=== PATIENT | female | born 1980 | race Caucasian/White ===

== ENCOUNTER 2018-01-30 13:51 | Emergency (ER) | payer BC, OTHER ==
[2018-01-30 14:18] LABS: Urine Blood TRACE (NEG); Urine Glucose NEGATIVE (NEG); Urine Protein NEGATIVE (NEG)
[2018-01-30 14:19] LABS: Absolute Lymphocytes (CBC) 2.7 K/uL (0.7-4.9); Absolute Monocytes 0.6 K/uL (0.1-1.3); Absolute Neutrophil 7.4 K/uL (1.8-8.0); Basophils % 0.5 % (0-1.3); Eosinophils % 0.9 % (0-4.4); Hematocrit 42.6 % (36.0-45.0); Lymphocytes % 24.8 % (15.3-44.8); MCV 89.4 fL (80-100); MPV 9.6 fL (7.6-11.3); Monocytes % 5.3 % (3.3-12.3); RBC Red Blood Cell Count 4.77 M/uL (3.86-4.86)
[2018-01-30 14:23] LABS: Protime INR 0.94
--- NOTE | 2018-01-30 14:26 | RAD REPORT ---
EXAM DESCRIPTION: RAD - Chest Single View - 01/30/2018 2:17 pm CLINICAL HISTORY: Code stroke chest film COMPARISON: None. TECHNIQUE: AP portable chest image was obtained 1410 hours . FINDINGS: Lungs are clear. Heart and vasculature are normal. No measurable pleural effusion and no p neumothorax. No acute bone finding. There is scoliotic curvature in the mid and upper thoracic spine. No acute aortic findings suspected. IMPRESSION: No acute cardiopulmonary process.
[2018-01-30 14:29] LABS: Potassium 4.1 mEq/L (3.6-5.0)
--- NOTE | 2018-01-30 14:29 | RAD REPORT ---
EXAM DESCRIPTION: CT - Ct Stroke Brain Wo Cont - 01/30/2018 2:08 pm CLINICAL HISTORY: Code stroke, left-sided facial numbness and tingling, left arm symptoms Images or only initially available in the exception folder. This precludes dictation of a final repor t at that time. Findings were telephoned to the referring clinician. CLINICAL HISTORY: None. TECHNIQUE: Axial 5 millimeter thick images of the head were obtained without IV contrast. All CT scans are performed using dose optimization technique as appropriate and may include automated exposure control or mA/KV adjustment according to patient size. FINDINGS: No intracranial hemorrhage, mass, or cerebral edema. No acute infarction identifiable. No extra-axial fluid collections. Che matter-white matter differentiation is preserved. Visualized portions of the mastoid air cells, paranasal sinuses, and orbits are unremarkable. Findings telephoned to Dr. Tomlinson at 1406 hours. IMPRESSION: No CT evidence of acute intracranial process.
--- NOTE | 2018-01-30 15:29 | EKG ---
Test Date: 2018-01-30 Test Time: 14:17:04 Fluid Dynamicist: NAZ MEASUREMENT RESULTS: Intervals: Rate: 96 RI: 136 QRSD: 78 QT: 344 QTc: 434 [place]: P: 57 RI: 136 QRS: 13 T: 43 INTERPRETIVE STATEMENTS: Normal sinus rhythm Normal ECG No previous ECG available for comparison Electronically Signed On 01-30-18 15:28:47 CDT by William Bobo
[2018-01-30 15:44] LABS: Urine Bacteria NONE SEEN /HPF (<20); Urine Culture Reflex Order NOT NEEDED; Urine RBC <5 /HPF (NONE SEEN)
--- NOTE | 2018-01-30 16:44 | EDPHYS ---
Physician Documentation [facility] Name: Jen Alan Age: 37 yrs Sex: Female : 1980 Arrival Date: 01/30/2018 Time: 13:53 Bed 16 Private MD: ED Physician Joel Tomlinson HPI: 01/30 15:22 This 37 yrs old Female presents to ER via EMS with complaints of Tingling in wa face and left arm. 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 Began on the left lower lip and proceeded to the left side face and temples. radiates down entire L arm. denies weakness, difficulty walking or speaking. denies dizziness or MOLINA. . Onset: The symptoms/episode began/occurred just prior to arrival. Duration: The episode is continuous. Context: symptoms became apparent while fixing lunch. , occurred at work, occurred while the patient was at rest, Possible contributing factors include: unknown. The symptoms are alleviated by nothing. The symptoms are aggravated by nothing. Associated signs and symptoms: Pertinent positives: tingling, Pertinent negatives: agitation, ataxia, blurred vision, chest pain, diaphoresis, dizziness, headache, lightheadedness, nausea, palpitations. Severity of symptoms: At their worst the symptoms were moderate in the emergency department the symptoms have improved. Patient's baseline: Neuro: alert and fully oriented, Motor: no deficits, Ambulation: walks without assistance, Speech: normal, The patient has a previous history of none. The patient has not experienced similar symptoms in the past. The patient has not recently seen a physician. 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 - Social history:: Patient/guardian denies using alcohol, street drugs, tobacco products, Smoking status: Patient/guardian denies using tobacco. - Family history:: not pertinent. - Hospitalizations: : No recent hospitalization is reported. ROS: 15:29 Constitutional: Negative for fever, chills, and weight loss, Eyes: Negative for injury, wa pain, redness, and discharge, ENT: Negative for injury, pain, and discharge, Neck: Negative for injury, pain, and swelling, Cardiovascular: Negative for chest pain, palpitations, and edema, Respiratory: Negative for shortness of breath, cough, wheezing, and pleuritic chest pain, Abdomen/GI: Negative for abdominal pain, nausea, vomiting, diarrhea, and constipation, Back: Negative for injury and pain, : Negative for injury, bleeding, discharge, and swelling, MS/Extremity: Negative for injury and deformity, Skin: Negative for injury, rash, and discoloration, Psych: Negative for depression, anxiety, suicide ideation, homicidal ideation, and hallucinations. 15:29 Neuro: Positive for tingling, of the left side face and LUE, Negative for altered mental status, dizziness, gait disturbance, headache, loss of consciousness, speech changes, syncope, tremor, visual changes, weakness. 15:29 All other systems are negative. Exam: 15:30 [facility] 15:30 Constitutional: This is a well developed, well nourished patient who is awake, alert, and in no acute distress. Head/Face: Normocephalic, atraumatic. Eyes: Pupils equal round and reactive to light, extra-ocular motions intact. Lids and lashes normal. Conjunctiva and sclera are non-icteric and not injected. Cornea within normal limits. Periorbital areas with no swelling, redness, or edema. ENT: Nares patent. No nasal discharge, no septal abnormalities noted. Tympanic membranes are normal and external auditory canals are clear. Oropharynx with no redness, swelling, or masses, exudates, or evidence of obstruction, uvula midline. Mucous membranes moist. Neck: Trachea midline, no thyromegaly or masses palpated, and no cervical lymphadenopathy. Supple, full range of motion without nuchal rigidity, or vertebral point tenderness. No Meningismus. Chest/axilla: Normal chest wall appearance and motion. Nontender with no deformity. No lesions are appreciated. Cardiovascular: Regular rate and rhythm with a normal S1 and S2. No gallops, murmurs, or rubs. Normal PMI, no JVD. No pulse deficits. Respiratory: Lungs have equal breath sounds bilaterally, clear to auscultation and percussion. No rales, rhonchi or wheezes noted. No increased work of breathing, no retractions or nasal flaring. Abdomen/GI: Soft, non-tender, with normal bowel sounds. No distension or tympany. No guarding or rebound. No evidence of tenderness throughout. Back: No spinal tenderness. No costovertebral tenderness. Full range of motion. Skin: Warm, dry with normal turgor. Normal color with no rashes, no lesions, and no evidence of cellulitis. MS/ Extremity: Pulses equal, no cyanosis. Neurovascular intact. Full, normal range of motion. Psych: Awake, alert, with orientation to person, place and time. Behavior, mood, and affect are within normal limits. 15:30 Neuro: Orientation: is normal, Mentation: is normal, Memory: is normal, Cranial nerves: grossly normal, Cerebellar function: is grossly normal, Motor: is normal, Sensation: is normal, Gait: is steady. Vital Signs: 13:47 BP 154 / 88; Pulse 98; Resp 18; Pulse Ox 100% ; sv 14:15 Temp 98.7(O); sv 14:47 BP 127 / 83; Pulse 108; Resp 18; Pulse Ox 99% on R/A; sv 15:49 BP 135 / 90; Pulse 98 MON; Resp 18; Pulse Ox 99% ; sv 15:49 Sinus Rhythm sv NIH Stroke Scale Scores: 14:28 NIHSS Score: 0 sv MDM: 13:57 Patient medically screened. wa 15:31 Differential diagnosis: CVA, TIA, metabolic disorder, consider MS. Data reviewed: vital wa signs, nurses notes, lab test result(s), EKG, radiologic studies. Test interpretation: by ED physician or midlevel provider: ECG, EKG: HR 96. nml axis. nml EKG. labs noted wnl. Nml CXR. 15:32 ED course: nml strength. no lateralizing deficits. will have f/u with neurology. return wa for any worsening concerns. 16:39 Special discussion: negative work up in ED. symptoms completely resolved. will d/c with wa close f/u with neurology. understands to return for any worsening concerns immediately. 01/30 14:10 Order name: Glucose, Ancillary Testing; Complete Time: 14:39 EDMS 01/30 14:13 Order name: Basic Metabolic Panel; Complete Time: 14:39 hb 01/30 14:51 Interpretation: GFR 56. wa 01/30 14:13 Order name: CBC with Diff; Complete Time: 14:50 hb 01/30 14:13 Order name: Protime (+inr); Complete Time: 14:50 hb 01/30 14:13 Order name: Ptt, Activated; Complete Time: 14:50 hb 01/30 14:13 Order name: Urine Microscopic Only hb 01/30 14:02 Order name: CT Stroke Brain w/o Contrast; Complete Time: 14:39 mw2 01/30 14:12 Order name: Chest Single View XRAY - STROKE; Complete Time: 14:50 hb 01/30 14:13 Order name: EKG; Complete Time: 14:14 hb 01/30 14:13 Order name: Accucheck; Complete Time: 14:17 hb 01/30 14:13 Order name: Cardiac monitoring; Complete Time: 14:17 hb 01/30 14:15 Order name: Urine Dipstick--Ancillary (enter results); Complete Time: 14:39 mw2 01/30 14:15 Order name: Urine --Ancillary (enter results); Complete Time: 14:39 mw2 01/30 14:13 Order name: EKG - Nurse/Tech; Complete Time: 14:17 hb 01/30 14:13 Order name: IV Saline Lock; Complete Time: 14:17 hb 01/30 14:13 Order name: Labs collected and sent; Complete Time: 14:17 hb 01/30 14:13 Order name: NPO; Complete Time: 14:17 hb 01/30 14:13 Order name: O2 Per Protocol; Complete Time: 14:17 hb 01/30 14:13 Order name: O2 Sat Monitoring; Complete Time: 14:17 hb 01/30 14:13 Order name: Stroke Swallow Screen; Complete Time: 16:45 hb 01/30 14:13 Order name: Urine Dipstick-Ancillary (obtain specimen); Complete Time: 14:17 hb Administered Medications: 17:08 Drug: Aspirin Chewable Tablet 324 mg Route: PO; sv 17:08 Follow up: Response: Medication administered at discharge. sv Point of Care Testing: Blood Glucose: 14:07 Blood Glucose: 93 mg/dL; sv Ranges: Critical Glucose Levels:Adult <50 mg/dl or >400 mg/dl <40 mg/dl or >180 mg/dl Disposition: 01/30/18 16:43 Discharged to Home. Impression: Left Facial Tingling, Left Upper Extremity Tingling. - Condition is Stable. - Medication Reconciliation Form, Thank You Letter, Antibiotic Education, Prescription Opioid Use form. - Work release form (01/31/18 09:50). ag - Follow up: Arnaldo Guevara MD; When: 1 - 2 days; Reason: Re-evaluation by your physician. - Problem is new. - Symptoms are resolved. - Notes: all your tests today have turned up within normal limits. the reason for your symptoms today is not entirely clear. please follow up with the neurologist as discussed within 2-3 days. return emergently to an ER setting for any rapidly worsening concerns such as headache, difficulty speaking and or walking NIH Stroke Scale - NIH Stroke Score Date: 01/30/2018 Time: 14:28 Total Score = 0 1a. Level of Consciousness (LOC) - 0(Alert) 1b. Level of Consciousness (LOC) (Year \T\ Age) - 0(Both) 1c. 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 Best Gaze (Lateral Gaze Paresis) - 0(Normal) 3. Visual Field Loss - 0(No visual loss) 4. Facial Palsy - 0(Normal) 5a. Left Arm: Motor (10-second hold) - 0(No drift) 5b. Right Arm: Motor (10-second hold) - 0(No drift) 6a. Left Leg: Motor (5-second hold - always test supine) - 0(No drift) 6b. Right Leg: Motor (5-second hold - always test supine) - 0(No drift) 7. Limb Ataxia (finger/nose \T\ heel/hays - test with eyes open) - 0(Absent) 8. Sensory Loss (pinprick arms/legs/face) - 0(Normal) 9. Best Language: Aphasia (description/naming/reading) - 0(No aphasia) 10. Dysarthria (speech clarity - read or repeat words) - 0(Normal) 11. Extinction and Inattention (visual/tactile/auditory/spatial/personal) - 0(No abnormality) Initials: sv Signatures: Dispatcher [employer] EDRegine Amato MARIELENA RN Alda Coburn RN RN hb Joel Tomlinson MD MD wa Gallardo, Ana ag
--- NOTE | 2018-01-30 16:44 | ER ---
Nurse's Notes [facility] Name: Jen Alan Age: 37 yrs Sex: Female : 1980 Arrival Date: 01/30/2018 Time: 13:53 Bed 16 Private MD: Diagnosis: Left Facial Tingling;Left Upper Extremity Tingling Presentation: 01/30 13:47 Presenting complaint: EMS states: tingling to lips, face, neck and left arm that sv started about 1.5 hours ago while at work while eating. BS-152, BP 150/74 HR 10 98% RA, EKG-ST. Transition of care: patient was not received from another setting of care. Onset of symptoms was January 30, 2018 at 12:00. Care prior to arrival: None. 13:47 Method Of Arrival: EMS: [facility] sv 13:47 Acuity: SAM 2 sv 14:07 The patients blood glucose was checked before arriving to the hospital and was found to sv be normal. Triage Assessment: 13:47 The onset of the patients symptoms was less than three hours ago. General: Appears in sv no apparent distress. comfortable, well developed, Behavior is calm, cooperative, appropriate for age. Pain: Denies pain. EENT: No signs and/or symptoms were reported regarding the EENT system. Neuro: Level of Consciousness is awake, alert, obeys commands, Oriented to person, place, time, situation, Moves all extremities. Full function Speech is normal, Facial symmetry appears normal, Tingling in left restoration, left zygomatic area, left cheek, left arm and mouth Denies blurred vision dizziness, difficulty swallowing, headache. Cardiovascular: Patient's skin is warm and dry. Respiratory: Respiratory effort is even, unlabored, Respiratory pattern is regular, symmetrical. GI: No signs and/or symptoms were reported involving the gastrointestinal system. : No signs and/or symptoms were reported regarding the genitourinary system. Derm: Skin is pink, warm \T\ dry. Musculoskeletal: Range of motion: intact in all extremities. 13:47 The onset of the patients symptoms was January 30, 2018 at 12:00. 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 Tomlinson; Notified At: ; Arrived At: Physician: Chief Stroke Resident; Name: ; Notified At: ; Arrived At: Physician: Stroke Resident; Name: ; Notified At: ; Arrived At: Physician: ED Attending; Name: ; Notified At: ; Arrived At: Physician: ED Resident; Name: ; Notified At: ; Arrived At: Historical: - Allergies: 14:12 No Known Allergies; sv - Home Meds: 14:12 IUD [Active]; sv - PMHx: 14:12 None; sv - PSHx: 14:12 None; sv - Immunization history:: Adult Immunizations up to date. - Social history:: Patient/guardian denies using alcohol, street drugs, tobacco products, Smoking status: Patient/guardian denies using tobacco. - Family history:: not pertinent. - Hospitalizations: : No recent hospitalization is reported. Screenin:10 Abuse screen: Denies threats or abuse. Denies injuries from another. Nutritional sv screening: No deficits noted. Tuberculosis screening: No symptoms or risk factors identified. Fall Risk None identified. Assessment: 13:50 Reassessment: Code Stroke called, pt transported to CT via stretcher with MARIELENA Weiner.hb 14:15 Patient has been NPO before screening. The patient is alert, and able to follow sv commands. The patient does not exhibit slurred or garbled speech. The patient is not exhibiting difficulty speaking. The patient does not exhibit difficulty understanding words. The patient is able to swallow own secretions with no drooling or need for suction. Patient tolerated one teaspoon of water. No drooling, immediate coughing, gurgling, or clearing of the throat was noted. The patient tolerated 90mL of water. No drooling, immediate coughing, gurgling, or clearing of the throat was noted. The patient passed the bedside swallow screening. Oral medications may be given as ordered. Contact Physician for further diet orders. Provider notified of bedside swallow screening results: Joel Tomlinson MD. 14:28 T-PA (Activase) Screening:. sv 15:30 Reassessment: Patient appears in no apparent distress at this time. No changes from sv previously documented assessment. Patient and/or family updated on plan of care and expected duration. Pain level reassessed. Patient is alert, oriented x 3, equal unlabored respirations, skin warm/dry/pink. 17:00 Reassessment: Patient appears in no apparent distress at this time. No changes from sv previously documented assessment. Patient and/or family updated on plan of care and expected duration. Pain level reassessed. Patient is alert, oriented x 3, equal unlabored respirations, skin warm/dry/pink. Vital Signs: 13:47 BP 154 / 88; Pulse 98; Resp 18; Pulse Ox 100% ; sv 14:15 Temp 98.7(O); sv 14:47 BP 127 / 83; Pulse 108; Resp 18; Pulse Ox 99% on R/A; sv 15:49 BP 135 / 90; Pulse 98 MON; Resp 18; Pulse Ox 99% ; sv 15:49 Sinus Rhythm sv NIH Stroke Scale Scores: 14:28 NIHSS Score: 0 sv ED Course: 13:53 Patient arrived in ED. hb 13:53 Regine Zuleta, RN is Primary Nurse. sv 13:[address] via stretcher. sv 13:57 Joel Tomlinson MD is Attending Physician. wa 13:58 CT completed. Patient tolerated procedure well. Patient moved to CT via stretcher. sj Patient moved back from CT. 14:00 Initial lab(s) drawn, by me, sent to lab. Inserted saline lock: 20 gauge in left sv antecubital area, using aseptic technique. Blood collected. Flushed left antecubital with 5 ml normal saline. 14:00 Patient has correct armband on for positive identification. Placed in gown. Bed in low sv position. Call light in reach. Side rails up X2. child monitor on. Pulse ox on. NIBP on. Door closed. Head of bed elevated. 14:00 Arm band placed on right wrist. sv 14:07 CT Stroke Brain w/o Contrast In Process Unspecified. EDMS 14:09 X-ray(s) taken. sv 14:15 Triage completed. sv 14:17 Chest Single View XRAY - STROKE In Process Unspecified. EDMS 14:20 ED physician to see patient. sv 14:20 EKG done, by ct technologist. reviewed by Joel Tomlinson MD. at1 15:49 Awaiting re-evaluation by ER provider. sv 16:41 Arnaldo Guevara MD is Referral Physician. wa 17:00 No provider procedures requiring assistance completed. IV discontinued, intact, sv bleeding controlled, No redness/swelling at site. Pressure dressing applied. Administered Medications: 17:08 Drug: Aspirin Chewable Tablet 324 mg Route: PO; sv 17:08 Follow up: Response: Medication administered at discharge. Point of Care Testing: Blood Glucose: 14:07 Blood Glucose: 93 mg/dL; Ranges: Outcome: 16:43 Discharge ordered by . raad 17:00 Discharged to home ambulatory. 17:00 Condition: stable 17:00 Discharge instructions given to patient, Instructed on discharge instructions, follow up and referral plans. Demonstrated understanding of instructions, follow-up care. 17:08 Patient left the ED. NIH Stroke Scale - NIH Stroke Score Date: 01/30/2018 Time: 14:28 Total Score = 0 1a. Level of Consciousness (LOC) - 0(Alert) 1b. Level of Consciousness (LOC) (Year \T\ Age) - 0(Both) 1c. 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 Best Gaze (Lateral Gaze Paresis) - 0(Normal) 3. Visual Field Loss - 0(No visual loss) 4. Facial Palsy - 0(Normal) 5a. Left Arm: Motor (10-second hold) - 0(No drift) 5b. Right Arm: Motor (10-second hold) - 0(No drift) 6a. Left Leg: Motor (5-second hold - always test supine) - 0(No drift) 6b. Right Leg: Motor (5-second hold - always test supine) - 0(No drift) 7. Limb Ataxia (finger/nose \T\ heel/hays - test with eyes open) - 0(Absent) 8. Sensory Loss (pinprick arms/legs/face) - 0(Normal) 9. Best Language: Aphasia (description/naming/reading) - 0(No aphasia) 10. Dysarthria (speech clarity - read or repeat words) - 0(Normal) 11. Extinction and Inattention (visual/tactile/auditory/spatial/personal) - 0(No abnormality) Initials: Signatures: Dispatcher [employer] Regine Boyer RN RN sv Jones, Susan sj gonzales, Amanda, retail advertising account executive EKG Tat1 Alda Hawkins RN RN Davi, MD MD raad Maldonado
[2018-01-30] MEDS ORDERED: ASPIRIN 81 MG CHEWABLE TABLET ONE (16:53)
== END 2018-01-30 17:08 | disposition home or self-care (01) ==
LOC: ER 13:51
DX: R20.2 Paresthesia of skin (principal)
CPT/HCPCS: 36415; 70450; 71045; 80048; 81003; 81015; 81025; 82962; 85025; 85610; 85730; 93005; 99285

== ENCOUNTER 2024-11-30 09:19 | Emergency (ER) | payer BC ==
--- OUTSIDE RECORDS SUMMARY | 2024-11-30 09:22 | XMS REPORT | Continuity of Care Document ---
Author Name Unknown Address [address] [facility] [address] [place] [address] [facility] Address [address] [facility] [place] [address] Care Team Providers Care Intensive Care Medicine Specialist Name Role Phone PCP, PATIENT DOES NOT HAVE A Primary Care Physic PRIMO Fay Attending Clinician Unavailable Primo Adrian Attending Clinician [phone] Unknown, Attending Attending Clinician Unavailab le Doctor Unassigned, [place] Attending Clinician U Mathew Mckinnon Attending Clinician [phone] Frances Sainz PA-C Attending Clinician [phone] Payers Payer Name Policy Type Policy Number Effective Date Expirati on Date Source [facility] [id number] 2016 00:00:00 Problems Condition Name Condition Details Condition Category Status Onset Date Resolution Date Last Treatment Date Treating Clinician Comments Source No known active problems No known active problems Disease [facility] Allergies, Adverse Reactions, Alerts Allergy Name Allergy Type Status Severity Reaction(s) Onset Date Inactive Date Treating Clinician Comments Source No Known Drug Allergie s DA Active U 05-05 00:00: [facility] NO KNOWN ALLERGIE S Drug Class Active [facility] Social History Social Habit Start Date Stop Date Quantity Comments Source History of tobacco use Occasional tobacco smoker [facility] Exposure to SARS-CoV-2 (event) 2023-02-14 00:00:00 2023-02-24 16:01:00 Not sure [facility] Tobacco use and exposure 2023-02-24 00:00:00 2023-02-24 00:00:00 Smokeless tobacco non-user [facility] Sex Assigned At 1980 00:00:00 1980 00:00:00 [facility] Smoking Status Start Date Stop Date Source Occasional tobacco smoker 2023-02-24 00:00:00 [facility] Medications Ordered Medication Name Filled Medication Name Start Date Stop Date Current Medication? Ordering Clinician Indication Dosage Frequency Signature (SIG) Comments Components Source cetirizine 10 mg tablet 02-24 16:14: 40 Yes 10mg Take 1 tablet by mouth in the morning. [facility] topiramate (TOPAMAX ORAL) 02-24 16:14: 40 Yes Take by mouth. [facility] aspirin 81 mg chewable tablet 02-24 16:14: 40 Yes 81mg Take 1 tablet by mouth in the morning. [facility] predniSONE 20 mg tablet 02-24 00:00: 00 03-02 04:59 :00 No [id number] 20mg Take 1 tablet by mouth in the morning and 1 tablet in the evening. Do all this for 5 days. [facility] cetirizine (ZYRTEC) 10 mg tablet 11-29 23:04: 12 Yes 10mg Take 10 mg by mouth daily. [facility] cetirizine (ZYRTEC) 10 mg tablet 11-29 17:04: 12 Yes 10mg Take 10 mg by mouth daily. [facility] methylPREDN ISolone (MEDROL, LTAHA,) 4 mg tablets 11-29 00:00: 00 02-24 00:00 :00 No [id number] Take by mouth SEE-INSTRU CTIONS. follow package directions [facility] bromphenira mine-pseudo ephedrine-D M (BROMFED DM) 2-30-10 mg/5 mL syrup 11-29 00:00: 00 12-10 05:59 :00 No [id number] 5mL Take 5 mL by mouth 4 (four) times daily as needed for Cough for up to 10 days. [facility] topiramate 50 mg tablet 11-10 00:00: 00 Yes TK 1 T PO HS [facility] clindamycin 300 mg capsule 2018-10 00:00: 00 Yes TK ONE C PO QID FOR 7 DAYS [facility] cetirizine (ZYRTEC) 10 mg tablet 06-20 18:35: 39 Yes 10mg Take 10 mg by mouth daily. [facility] topiramate (TOPAMAX ORAL) 06-20 18:35: 39 Yes Take by mouth. [facility] aspirin 81 mg chewable tablet 06-20 18:35: 39 Yes 81mg Take 81 mg by mouth daily. [facility] montelukast (SINGULAIR) 10 mg tablet 06-20 18:34: 28 Yes 10mg Take 10 mg by mouth. [facility] topiramate (TOPAMAX ORAL) 06-20 13:35: 39 Yes Take by mouth. [facility] aspirin 81 mg chewable tablet 06-20 13:35: 39 Yes 81mg Take 81 mg by mouth daily. [facility] montelukast (SINGULAIR) 10 mg tablet 06-20 13:34: 28 Yes 10mg Take 10 mg by mouth. [facility] montelukast (SINGULAIR) 10 mg tablet 01-18 02:05: 38 Yes 10mg Take 10 mg by mouth. [facility] mupirocin (BACTROBAN) 2 % ointment 01-17 00:00: 00 Yes [id number] Apply to area(s) 3 (three) times daily. [facility] Vital Signs Vital Name Observation Time Observation Value Comments S odilia Systolic blood pressure 2023-02-24 21:15:00 144 mm[Hg] [facility] Diastolic blood pressure 2023-02-24 21:15:00 88 mm[Hg] [facility] Heart rate 2023-02-24 21:10:00 90 /min [facility] Body temperature 2023-02-24 21:10:00 36.22 [place] [facility] Respiratory rate 2023-02-24 21:10:00 18 /min [facility] Body height 2023-02-24 21:10:[address] [facility] Body weight 2023-02-24 21:10:[address] [facility] BMI 2023-02-24 21:10:00 30.79 kg/m2 [facility] Oxygen saturation in Arterial blood by Pulse oximetry 2023-02-24 21:10:00 100 /min [facility] Systolic blood pressure 2019-11-29 23:02:00 137 mm[Hg] [facility] Diastolic blood pressure 2019-11-29 23:02:00 94 mm[Hg] [facility] Heart rate 2019-11-29 23:02:00 91 /min [facility] Body temperature 2019-11-29 23:02:00 36.89 [facility] Respiratory rate 2019-11-29 23:02:00 18 /min [facility] Body height 2019-11-29 23:02:[address] [facility] Body weight 2019-11-29 23:02:[address] [facility] BMI 2019-11-29 23:02:00 37.89 kg/m2 [facility] Oxygen saturation in Arterial blood by Pulse oximetry 2019-11-29 23:02:00 98 /min [facility] Systolic blood pressure 2019-06-20 18:35:00 124 mm[Hg] [facility] Diastolic blood pressure 2019-06-20 18:35:00 86 mm[Hg] [facility] Heart rate 2019-06-20 18:35:00 89 /min [facility] Body temperature 2019-06-20 18:35:00 36.83 [place] [facility] Respiratory rate 2019-06-20 18:35:00 18 /min [facility] Body height 2019-06-20 18:35:[address] [facility] Body weight 2019-06-20 18:35:[address] [facility] BMI 2019-06-20 18:35:00 37.84 kg/m2 [facility] Oxygen saturation in Arterial blood by Pulse oximetry 2019-06-20 18:35:00 99 /min [place] Procedures Procedure Date / Time Performed Performing Clinician Source ASSIGNMENT OF BENEFITS 2023-02-24 21:01:17 Docto r Unassigned, [place] [facility] POCT GRP A STREP (MOLECULAR) 2019-11-29 23:12:00 Otoniel Saeid [facility] POCT FLU A AND B (MOLECULAR) 2019-11-29 23:12:00 Otoniel Saeid [facility] POCT RAPID STREP SCREEN FOR GROUP A 2019-06-20 18:41:00 Frances Sainz [facility] NO SHOW OR MISSED APPOINTMENT POLICY ACKNOWLEDGEMENT 2019-06-20 18:29:08 Doctor Unassigned, [place] [facility] Encounters Start Date/Time End Date/Time Encounter Type Admission Type Attending Clinicians Care Facility Care Department Encounter ID Source 2023-02-24 16:00:00 2023-02-24 16:37:00 Outpatient R PRIMO CALDERÓN [facility] [id number] [facility] 2023-02-24 16:00:00 2023-02-24 16:37:00 Urgent Care Primo Calderón Unknown, Attending [facility] ..[id number] [id number] [facility] 2023-02-24 00:00:00 2023-02-24 00:00:00 Orders Only Doctor Unassigned, [place] [facility] [id number] [id number] [facility] 2020-04-18 10:40:00 2020-04-18 10:40:00 Outpatient R [facility] [id number] [facility] 2019-12-10 18:43:00 2019-12-10 18:43:00 Emergency E [facility] [id number] [facility] 2019-11-29 16:56:22 2019-11-29 17:28:41 Urgent Care Mathew Chairez Unknown, Attending [facility] [id number] [facility] 2019-06-20 13:28:22 2019-06-20 13:43:22 Urgent Care Frances Sainz Unknown, Attending [facility] [id number] [facility] 2019-06-20 00:00:00 2019-06-20 00:00:00 Orders Only Doctor Unassigned, [place] [facility] [id number] [id number] [id number] [facility] Results Test Description Test Time Test Comments Results Result Co mments Source [facility] GRP A STREP (MOLECULAR)2019-11-29 23:24:00* Test Item Value Reference Range Interpretation Comme nts POCT GP A STREP (test code = 44191-8) negative Negative - Negative PAULA (test code = PAULA) accurate developme nt and interpretation of all internal controls Lab Interpretation (test code = 56307-4) Normal [facility] RAPID STREP SCREEN FOR GROUP [id number] 18:48:00* Test Item Value Reference Range Interpretation Comme nts POCT GP A STREP (test code = 97743-9) neg Negative - Negative PAULA (test code = PAULA) accurate developme nt and interpretation of all internal controls Lab Interpretation (test code = 55636-2) Normal [facility] [id number] 16:26:00* Test Item Value Reference Range Interpretation Comme nts SODIUM (test code = NA) 138 mEq/L 134-147 N POTASSIUM (test code = K) 3.6 mEq/L 3.4-5.0 N CHLORIDE (test code = CL) 107 mEq/L 100-108 N CARBON DIOXIDE (test code = CO2) 24 mEq/L 21-33 N ANION GAP (test code = GAP) 11 0-20 N GLUCOSE (test code = GLU) 110 mg/dL 70-110 N BLOOD UREA NITROGEN (test code = BUN) 13 mg/dL 7-18 N GLOMERULAR FILTRATION RATE (test code = GFR) 69.7 105-110 L Units of measure = ml/min/1.73 m2 CREATININE (test code = CREAT) 0.9 mg/dL 0.6-1.3 N TOTAL PROTEIN (test code = PROT) 8.2 g/dL 6.4-8.2 N ALBUMIN (test code = ALB) 4.20 g/dL 3.4-5.0 N CALCIUM (test code = CA) 9.1 mg/dL 8.0-10.5 N BILIRUBIN TOTAL (test code = BILT) 0.40 mg/dL 0.0-1.0 N SGOT/AST (test code = AST) 17 IUnit/L 15-37 N SGPT/ALT (test code = ALT) 31 IUnit/L 15-65 N ALKALINE PHOSPHATASE TOTAL (test code = ALKP) 67 IUnit/L 20-125 N [id number] 16:23:00* Test Item Value Reference Range Interpretation Comme nts D-DIMER (test code = DDIMER) 236 ng/mlFEU <=500 N THROMBOSIS AND/O R PULMONARY EMBOLISM AND THE CLINICAL CUT- OFF VALUE FOR EXCLUSION (500 ng/mL FEU) OF THESE CONDITIONSIS VALIDATED BY THE ELECTRONIC RESOURCES LIBRARIAN OF THE METHOD. A NEGATIVE D-DIMER RESULT WHEN COMBINED WITH A CLINICALASSESSMENT OF LOW PRETEST PROBABILITY HAS BEEN SHOWN TO HAVEA HIGH NEGATIVE PREDICTIVE VALUE OF DVT OR PE. D-DIMER VALUES >500 ng/mL FEU ARE NOT DIAGNOSTIC FOR DVT, PEor DIC WITHOUT OTHER CONFIRMATORY TESTS AND APPROPRIATECLINICAL EUALUATIONS. COMPREHENSIVE METABOLIC [id number] 16:23:00* Test Item Value Reference Range Interpretation Comme nts SODIUM (test code = NA) 138 mEq/L 134-147 N POTASSIUM (test code = K) 3.6 mEq/L 3.4-5.0 N CHLORIDE (test code = CL) 107 mEq/L 100-108 N CARBON DIOXIDE (test code = CO2) 24 mEq/L 21-33 N ANION GAP (test code = GAP) 11 0-20 N GLUCOSE (test code = GLU) 110 mg/dL 70-110 N BLOOD UREA NITROGEN (test code = BUN) 13 mg/dL 7-18 N GLOMERULAR FILTRATION RATE (test code = GFR) 69.7 105-110 L Units of measure = ml/min/1.73 m2 CREATININE (test code = CREAT) 0.9 mg/dL 0.6-1.3 N TOTAL PROTEIN (test code = PROT) g/dL 6.4-8.2 ALBUMIN (test code = ALB) 4.20 g/dL 3.4-5.0 N CALCIUM (test code = CA) 9.1 mg/dL 8.0-10.5 N BILIRUBIN TOTAL (test code = BILT) mg/dL 0.0-1.0 SGOT/AST (test code = AST) 17 IUnit/L 15-37 N SGPT/ALT (test code = ALT) 31 IUnit/L 15-65 N ALKALINE PHOSPHATASE TOTAL (test code = ALKP) IUnit/L 20-125 CBC W/AUTO [id number] 16:16:00* Test Item Value Reference Range Interpretation Comme nts WHITE BLOOD CELL (test code = WBC) 11.54 x10 3/uL 4.5-11.0 H RED BLOOD CELL (test code = RBC) 5.09 x10 6/uL 3.54-5.02 H HEMOGLOBIN (test code = HGB) 15.5 g/dL 11.0-15.0 H HEMATOCRIT (test code = HCT) 45.0 % 33.0-45.0 N MEAN CELL VOLUME (test code = MCV) 88.4 fL 81.0-99.0 N MEAN CELL HGB (test code = MCH) 30.5 pg 27.0-33.0 N MEAN CELL HGB CONCETRATION (test code = MCHC) 34.4 g/dL 33.0-37.0 N RED CELL DISTRIBUTION WIDTH CV (test code = RDW) 11.5 % 11.5-14.5 N RED CELL DISTRIBUTION WIDTH SD (test code = RDW-SD) 37.2 fL 37.0-54.0 N PLATELET COUNT (test code = PLT) 278 x10 3/uL 150-400 N MEAN PLATELET VOLUME (test code = MPV) 11.1 fL 7.0-9.0 H NEUTROPHIL % (test code = NT%) 69.8 % 56.0-77.0 N IMMATURE GRANULOCYTE % (test code = IG%) 0.7 % 0.0-2.0 N LYMPHOCYTE % (test code = LY%) 23.0 % 14.0-32.0 N MONOCYTE % (test code = MO%) 5.1 % 4.8-9.0 N EOSINOPHIL % (test code = EO%) 1.0 % 0.3-3.7 N BASOPHIL % (test code = BA%) 0.4 % 0.0-2.0 N NUCLEATED RBC % (test code = NRBC%) 0.0 % 0-0 N NEUTROPHIL # (test code = NT#) 8.06 x10 3/uL 2.0-7.6 H IMMATURE GRANULOCYTE # (test code = IG#) 0.08 x10 3/uL 0.00-0.03 H LYMPHOCYTE # (test code = LY#) 2.65 x10 3/uL 1.0-3.8 N MONOCYTE # (test code = MO#) 0.59 x10 3/uL 0.1-0.8 N EOSINOPHIL # (test code = EO#) 0.11 x10 3/uL 0.0-0.2 N BASOPHIL # (test code = BA#) 0.05 x10 3/uL 0.0-0.2 N NUCLEATED RBC # (test code = NRBC#) 0.00 x10 3/uL 0.0-0.1 N MANUAL DIFF REQUIRED (test code = MDIFF) NO - XR CHEST 2 [id number] 15:03:00FAX: Ayesha Vargas DO [place]: St: PRE Name: [facility] Arpita Diego : 1980 Age/S: 38/F [address] [place] [address] Unit #: [id number] Loc: [place] [address] Phys: Ayesha Jay DO Acct: [id number] Dis Date: Status: PRE ER PHONE #: [phone] Exam Date: 01/04/2019 1503 FAX #: [phone] Reason: CHEST PAIN, TACHYCARDIA EXAMS: CPT CODE: [id number] XR CHEST 2 V 20027 EXAM: PA and lateral chest. EXAM DATE: January 04, 2019 CLINICAL HISTORY: Chest pain, tachycardia COMPARISON: None Cardiomediastinal silhouette is within normal limits. The lungs appear free of acute disease. S-shaped scoliosis is identified in the thoracic spine. IMPRESSION: No evidence of acute cardiopulmonary disease. at 1508 Reported and signed by: Ashly Lentz M.D. CC: Ayesha Jay DO Technologist: RT Gabino(Irena) Ana Paula Date/Time/By: 01/04/2019 (2990) : By: Shakira Orig Print D/T: S: 01/04/2019 (4886) PAGE 1 Signed Report
[2024-11-30] MEDS ORDERED: ONDANSETRON 4 MG/2 ML VIAL ONE (10:03)
[2024-11-30] MEDS ORDERED: NA CHLORIDE 0.9% 1,000 ML ONE (10:04)
[2024-11-30] MEDS ORDERED: MORPHINE 4 MG/ML SYR ONE (10:04)
[2024-11-30 10:11] LABS: Specific Gravity 1.021 (1.005-1.030); Sqamous Epithelial <5 /HPF (None Seen); Urine Bacteria <20 /HPF (<20); Urine Bilirubin NEGATIVE (Negative); Urine Blood 2+ (Negative); Urine Clarity Turbid (Clear); Urine Color Light-Yellow (Yellow); Urine Culture Reflex Order NOT NEEDED; Urine Glucose NEGATIVE (Negative); Urine Ketones NEGATIVE (Negative); Urine Microscopic Reflex YN ORDER UMIC; Urine Mucus Slight /HPF (None Seen); Urine Nitrite NEGATIVE (Negative); Urine Protein NEGATIVE (Negative); Urine RBC <5 /HPF (None Seen); Urine Urobilinogen Normal (Normal); Urine WBC <5 /HPF (<5)
[2024-11-30 10:14] LABS: Absolute Basophils 0.1 K/uL (0-0.5); Absolute Eosinophils 0.1 K/uL (0-0.5); Absolute Lymphocytes (CBC) 2.7 K/uL (0.7-4.9); Absolute Monocytes 0.6 K/uL (0.1-1.3); Absolute Neutrophil 7.5 K/uL (1.8-8.0); Basophils % 0.8 % (0-1.3); Eosinophils % 1.1 % (0-4.4); Hematocrit 41.6 % (36.0-45.0); Hemoglobin 14.2 g/dL (12.0-15.0); MCH 30.6 pg (27.0-35.0); MCHC 34.2 g/dL (32.0-36.0); MCV 89.3 fL (80-100); MPV 8.9 fL (7.6-11.3); Monocytes % 5.3 % (3.3-12.3); Neutrophils % 67.8 % (41.7-73.7); Platelets 264 thou/uL (152-406); RBC Red Blood Cell Count 4.65 M/uL (3.86-4.86); Red Cell Distribution Width 12.3 % (12.1-15.2)
[2024-11-30 10:28] LABS: Albumin 3.9 g/dL (3.4-5.0); Albumin/Globulin Ratio 1.1 (1.1-1.8); Anion Gap 8.9 mEq/L (5.0-15.0); Bilirubin Total 0.3 mg/dL (0.2-1.0); Globulin 3.6 g/dL (2.3-3.5); Potassium 3.9 mEq/L (3.5-5.1); Protein, Total 7.5 g/dL (6.4-8.2)
--- NOTE | 2024-11-30 11:17 | RAD REPORT ---
EXAMINATION: CT ABDOMEN AND PELVIS WITH CONTRAST CLINICAL INDICATION: ABD PAIN TECHNIQUE: CT abdomen and pelvis was performed, after the administration of IV contrast, as per [facility] protocol. Axial, sagittal and coronal reconstructions were obtained. One or more of the following dose reduction techniques were used: Automated exposure control, adjustment of the mA and k V according to patient size, and iterative reconstruction. Unless otherwise specified, incidental findings do not require dedicated imaging follow-up. COMPARISON: No prior exam. FINDINGS: LOWER CHEST: The visualized lung bases are clear. Small hiatal hernia. LIVER: Normal in size and contour. No focal lesion. Grossly unremarkable gallbladder. SPLEEN: Normal size. No focal lesion. PANCREAS: No mass, ductal dilation, or anahy-pancreatic fluid. ADRENALS: Normal; no mass. KIDNEYS: Normal size and contour. No hydronephrosis. GASTROINTESTINAL TRACT: No evidence of free air, significant intra-abdominal free fluid, bowel obstru ction or abscess. Prominent sigmoid diverticulosis coli without diverticulitis. APPENDIX: Normal appendix. LYMPH NODES: No lymphadenopathy. MUSCULOSKELETAL: Mild degenerative levoscoliosis lumbar spine. ADDITIONAL FINDINGS: Small fat-containing umbilical hernia. IMPRESSION: Prominent sigmoid diverticulosis coli is present without diverticulitis findings. Small fat-containing umbilical hernia. Mild lumbar levoscoliosis.
--- NOTE | 2024-11-30 11:23 | ER ---
Nurse's Notes [facility] Name: Jen Alan Age: 44 yrs Sex: Female : 1980 Arrival Date: 11/30/2024 Time: 09:19 Bed 2 Private MD: Diagnosis: Lower abdominal pain, unspecified;Constipation, unspecified Presentation: 11/30 09:30 Chief complaint: Patient states: RLQ pain since 1 am. Coronavirus screen: At this time, iw the client does not indicate any symptoms associated with coronavirus-19. Ebola Screen: No symptoms or risks identified at this time. Initial Sepsis Screen: Does the patient meet any 2 criteria? No. Patient's initial sepsis screen is negative. Does the patient have a suspected source of infection? No. Patient's initial sepsis screen is negative. Risk Assessment: Do you want to hurt yourself or someone else? Patient reports no desire to harm self or others. Onset of symptoms was November 30, 2024. 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 - Infectious Disease History:: Denies. - Social history:: Smoking status: Reported history of juuling and/or vaping. Patient/guardian denies using tobacco, the patient reports quitting approximately 1 years ago. Screenin:55 [facility] ED Fall Risk Assessment (Adult) History of falling in the last 3 months, aa5 including since admission No falls in past 3 months (0 pts) Confusion or Disorientation No (0 pts) Intoxicated or Sedated No (0 pts) Impaired Gait No (0 pts) Mobility Assist Device Used No (0 pt) Altered Elimination No (0 pt) Score/Fall Risk Level 0 - 2 = Low Risk Oriented to surroundings, Maintained a safe environment, Educated pt \T\ family on fall prevention, incl call for assistance when getting out of bed, Assessed \T\ reinforced patient's understanding of fall precautions. Abuse screen: Denies threats or abuse. Nutritional screening: No deficits noted. Tuberculosis screening: No symptoms or risk factors identified. Assessment: 09:55 General: Appears uncomfortable, Behavior is calm, cooperative. Pain: Complains of pain aa5 in right lower quadrant Pain radiates to right hip Pain currently is 7 out of 10 on a pain scale. Quality of pain is described as sharp, Is continuous. Neuro: Level of Consciousness is awake, alert, obeys commands, Oriented to person, place, time, situation. Cardiovascular: Patient's skin is warm and dry. Respiratory: Airway is patent Respiratory effort is even, unlabored, Respiratory pattern is regular, symmetrical. GI: Abdomen is round Bowel sounds present X 4 quads. Abd is soft and non tender X 4 quads. Reports nausea, and slight diarrhea Patient currently denies vomiting. : No signs and/or symptoms were reported regarding the genitourinary system. EENT: No signs and/or symptoms were reported regarding the EENT system. Derm: Skin is pink, warm \T\ dry. Musculoskeletal: Range of motion: intact in all extremities. 11:00 Reassessment: Patient states feeling better. Pt assisted to restroom via wheelchair, pt aa5 placed back in bed. . Reassessment: Patient is alert, oriented x 3, equal unlabored respirations, skin warm/dry/pink. Pain: Pain currently is 5 out of 10 on a pain scale. 12:00 Reassessment: Pt waiting to be discharged due to no ride after receiving morphine. cm10 Vital Signs: 09:30 BP 146 / 96; Pulse 91; Resp 19; Temp 97.7; Pulse Ox 99% on R/A; Weight 97.52 kg; Height iw 5 ft. 5 in. ; Pain 5/10; 12:06 BP 152 / 91; Pulse 64; Resp 15; cm10 09:30 Body Mass Index 35.78 (97.52 kg, 165.1 cm) iw 09:30 Pain Scale: Adult iw ED Course: 09:23 Patient arrived in ED. al6 09:31 Carol Greco PA-C is PHCP. sb4 09:31 Reynaldo Peralta MD is Attending Physician. sb4 09:32 Triage completed. iw 09:32 Arm band placed on. iw 09:55 Patient has correct armband on for positive identification. Bed in low position. Call aa5 light in reach. Side rails up X2. Pulse ox on. KHADIJAHBP on. 10:00 Initial lab(s) drawn, by me, sent to lab. Inserted saline lock: 22 gauge in left aa5 antecubital area, using aseptic technique. Blood collected. Flushed with 10 mL NS. 10:13 Nivia Velasco, RN is Primary Nurse. aa5 10:50 CT Abd/Pelvis - IV Contrast Only In Process Unspecified. EDMS 11:04 Report given to MARIELENA Holliday. aa5 12:06 No provider procedures requiring assistance completed. IV discontinued, intact, cm10 bleeding controlled, No redness/swelling at site. Pressure dressing applied. 12:07 Provided Education on: Follow-up instructions. cm10 Administered Medications: 10:08 Drug: Ondansetron IVP 4 mg IVP once; over 2 minutes Route: IVP; Site: left antecubital; aa5 10:15 Follow up: Response: No adverse reaction aa5 10:08 Drug: NS 0.9% IV 1000 ml IV at 1 bolus Per protocol; to be given as a bolus over 60 aa5 minutes Route: IV; Rate: 1 bolus; Site: left antecubital; 12:00 Follow up: IV Status: Completed infusion; IV Intake: 1000ml cm10 10:10 Drug: morphine IVP or IV 4 mg IVP once over 4 mins Route: IVP; Infused Over: 4 mins; aa5 Site: left antecubital; 10:15 Follow up: Response: No adverse reaction aa5 12:00 Drug: Magnesium Citrate PO Liquid 300 ml PO once Route: PO; cm10 12:07 Follow up: Response: Medication administered at discharge. cm10 Medication: 10:17 VIS not applicable for this client. aa5 Intake: 12:00 IV: 1000ml; Total: 1000ml. cm10 Outcome: 11:22 Discharge ordered by . [email or web address] 12:06 Discharged to home ambulatory, cm10 12:06 Condition: good 12:06 Discharge instructions given to patient, Instructed on discharge instructions, follow up and referral plans. medication usage, Demonstrated understanding of instructions, follow-up care, medications, 12:07 Patient left the ED. cm10 Signatures: Dispatcher [employer] EDIrish Enciso RN RN Nivia Velasco, RN RN aa5 Carol Greco PA-C PAMiya Chen RN RN cm10 [email or web address] Corrections: (The following items were deleted from the chart) 09:33 09:30 BP 146 / 96; Pulse 91bpm; Resp 19bpm; Pulse Ox 99% RA; Temp 97.7F; iw iw 09:34 09:30 BP 146 / 96; Pulse 91bpm; Resp 19bpm; Pulse Ox 99% RA; Temp 97.7F; iw 09:35 09:30 BP 146 / 96; Pulse 91bpm; Resp 19bpm; Pulse Ox 99% RA; Temp 97.7F; iw 09:35 09:32 Allergies: No Known Allergies; iw iw
--- NOTE | 2024-11-30 11:23 | EDPHYS ---
Physician Documentation [facility] Name: Jen Alan Age: 44 yrs Sex: Female : 1980 Arrival Date: 11/30/2024 Time: 09:19 Bed 2 Private MD: ED Physician Reynaldo Peralta HPI: 11/30 10:07 This 44 yrs old Female presents to ER via Ambulatory with complaints of Abdominal Pain. sb4 10:07 Patient reports right lower quadrant abdominal pain that began in the middle the night. sb4 She states that it is slowly worsening. States the pain comes and goes but feels sharp when it does come on. Also feels like her right lower quadrant is bloated. Denies any nausea, vomiting, diarrhea, or fever. 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 - Infectious Disease History:: Denies. - Social history:: Smoking status: Reported history of juuling and/or vaping. Patient/guardian denies using tobacco, the patient reports quitting approximately 1 years ago. ROS: 10:07 Constitutional: Negative for fever, chills, and weight loss, sb4 10:07 Abdomen/GI: Positive for abdominal pain, 10:07 All other systems are negative, Exam: 10:07 Head/Face: Normocephalic, atraumatic. Eyes: Extra-ocular motions intact. Periorbital sb4 areas with no swelling, redness, or edema. ENT: Mucous membranes moist. Cardiovascular: Regular rate and rhythm with a normal S1 and S2. Respiratory: No increased work of breathing, no retractions or nasal flaring. Skin: Warm, dry with normal turgor. Normal color with no rashes, no lesions, and no evidence of cellulitis. 10:07 Constitutional: The patient appears alert, awake, uncomfortable, 10:07 Abdomen/GI: Inspection: abdomen appears normal, Bowel sounds: normal, Palpation: soft, moderate abdominal tenderness, in the right lower quadrant, rebound tenderness, is appreciated in the right lower quadrant, Indicators: McBurney's point is tender, Vital Signs: 09:30 BP 146 / 96; Pulse 91; Resp 19; Temp 97.7; Pulse Ox 99% on R/A; Weight 97.52 kg; Height iw 5 ft. 5 in. ; Pain 02/27; 12:06 BP 152 / 91; Pulse 64; Resp 15; cm10 09:30 Body Mass Index 35.78 (97.52 kg, 165.1 cm) iw 09:30 Pain Scale: Adult iw MDM: 09:31 Medical Screening Exam initiated sb4 11:22 Data reviewed: vital signs, nurses notes, lab test result(s), radiologic studies, and sb4 as a result, I will discharge patient. Counseling: I had a detailed discussion with the patient and/or guardian regarding the historical points, exam findings, and any diagnostic results supporting the discharge/admit diagnosis, lab results, radiology results, the need for outpatient follow up, for definitive care, to return to the emergency department if symptoms worsen or persist or if there are any questions or concerns that arise at home. 11/30 09:35 Order name: CBC with Diff; Complete Time: 10:20 sb4 11/30 09:35 Order name: CMP; Complete Time: 10:29 sb4 11/30 09:35 Order name: Lipase; Complete Time: 10:29 sb4 11/30 09:35 Order name: Test, Urine; Complete Time: 10:13 sb4 11/30 09:35 Order name: Urinalysis w/ reflexes; Complete Time: 10:13 sb4 11/30 09:35 Order name: CT Abd/Pelvis - IV Contrast Only; Complete Time: 11:18 sb4 11/30 09:35 Order name: IV Saline Lock; Complete Time: 10:14 sb4 11/30 09:35 Order name: Labs collected and sent; Complete Time: 10:14 sb4 Administered Medications: 10:08 Drug: Ondansetron IVP 4 mg IVP once; over 2 minutes Route: IVP; Site: left antecubital; aa5 10:15 Follow up: Response: No adverse reaction aa5 10:08 Drug: NS 0.9% IV 1000 ml IV at 1 bolus Per protocol; to be given as a bolus over 60 aa5 minutes Route: IV; Rate: 1 bolus; Site: left antecubital; 12:00 Follow up: IV Status: Completed infusion; IV Intake: 1000ml cm10 10:10 Drug: morphine IVP or IV 4 mg IVP once over 4 mins Route: IVP; Infused Over: 4 mins; aa5 Site: left antecubital; 10:15 Follow up: Response: No adverse reaction aa5 12:00 Drug: Magnesium Citrate PO Liquid 300 ml PO once Route: PO; cm10 12:07 Follow up: Response: Medication administered at discharge. cm10 Disposition: 13:29 Co-signature as Attending Physician, Reynaldo Peralta MD I reviewed the patient's care rn provided by the Advanced Practice Provider and agree with the diagnosis and treatment plan. Disposition Summary: 11/30/24 11:22 Discharge Ordered Notes: Location: Home sb4 Problem: new sb4 Symptoms: have improved sb4 Condition: Stable sb4 Diagnosis - Lower abdominal pain, unspecified sb4 - Constipation, unspecified sb4 Followup: sb4 - With: Emergency Department - When: As needed - Reason: Trouble breathing, Worsening of condition Discharge Instructions: - Discharge Summary Sheet sb4 - Constipation, Adult, [id number] sb4 - Abdominal Pain, Adult, [id number] sb4 Forms: - Work release form sb4 - Patient Portal Instructions sb4 - Leadership Thank You Letter sb4 Prescriptions: - Colace 100 mg Oral Tablet - take 1 tablet ORAL route every 12 hours; 14 tablet; Refills: 0, Product sb4 Selection Permitted Signatures: Dispatcher [employer] Irish Morris, RN MARIELENA Reynaldo Peralta MD MD rn Calderon, Audri, RN RN aa5 Carol Greco PA-C PAMartin sb4 Miya Nava RN RN cm10 Corrections: (The following items were deleted from the chart) 09:35 09:32 Allergies: No Known Allergies; [facility] 09:36 09:36 CBC+H.LAB.BRZ ordered. EDMS EDMS 09:36 09:36 COMPREHENSIVE METABOLIC PANEL+C.LAB.BRZ ordered. EDMS EDMS 09:36 09:36 LIPASE+C.LAB.BRZ ordered. EDMS EDMS 09:36 09:36 Test, Urine+UC.LAB.BRZ ordered. EDMS EDMS 09:36 09:36 Urinalysis+U.LAB.BRZ ordered. EDMS EDMS 09:36 09:36 Abdomen Pelvis W Con+CT.RAD.BRZ ordered. EDMS EDMS
[2024-11-30] MEDS ORDERED: MAGNESIUM CITRATE 300 ML BOT ONE (11:36)
[2024-11-30 12:12] VITALS: TEMP 97.7; O2SAT 99
[2024-11-30 12:14] VITALS: BP 152/91
== END 2024-11-30 12:07 | disposition home or self-care (01) ==
LOC: ER 09:19
DX: K59.00 Constipation, unspecified (principal)
CPT/HCPCS: 85025; 81001; 36415; 81025; 83690; 80053; 74177; Q9967; J2405; J7030; 96361; 96374; 96375; 99284